=== PATIENT | male | born 1975 | race Caucasian/White ===

== ENCOUNTER 2019-10-05 14:33 | Emergency (ER) | payer OTHER, SELFPAY ==
[2019-10-05 14:37] VITALS: BP 124/82; PULSE 67; RESP 18; TEMP 36.2; O2SAT 99; BMI 28.5
[2019-10-05 15:12] LABS: Add Manual Diff / Slide Review NO; Basophils Absolute Auto 100 /uL (0-100); Basophils Percent Auto 1.2 % (0-2); Eosinophils Absolute Auto 100 /uL (0-450); Eosinophils Percent Auto 0.9 % (2-4); Hematocrit 42.8 % (41-53); Lymphocytes Absolute Auto 2000 /uL (1100-4500); Lymphocytes Percent Auto 27.9 % (25-40); Mean Corpuscular Hemoglobin 28.8 PG (26-34); Mean Corpuscular Volume 82.3 fL (80-100); Monocytes Absolute Auto 400 /uL (0-900); Monocytes Percent Auto 5.4 % (3-14); Neutrophils Absolute Auto 4600 /uL (1500-7000); Neutrophils Percent Auto 64.6 % (50-75); Platelet Count 235 X10^3/uL (150-400); Red Blood Cell Count 5.21 X10^6/uL (4.5-5.9); Red Cell Distribution Width 13.1 % (11.6-14.8); White Blood Cell Count 7.1 X10^3/uL (4.5-11.0)
[2019-10-05 15:15] LABS: Prothrombin Time 11.7 SECONDS (10.1-12.7)
[2019-10-05 15:17] LABS: PTT Partial Thromboplastin Tim 30 SECONDS (26.4-36.2)
[2019-10-05 15:19] LABS: Alanine Aminotransferase 26 IU/L (<50); Albumin 4.7 g/dL (3.5-5.0); Albumin Globulin Ratio 1.6 (1.0-2.8); Alkaline Phosphatase 74 U/L (38-126); Aspartate Aminotransferase 30 IU/L (17-59); BUN Creatinine Ratio 16.7 (6-22); Bilirubin Total 1.2 mg/dL (0.2-1.3); Blood Urea Nitrogen 15 mg/dL (9-20); Calcium 9.6 mg/dL (8.4-10.2); Carbon Dioxide 28 mmol/L (22-32); Chloride 103 mmol/L (98-107); Estimated Glomerular Filt Rate > 60.0 mL/min (>60); Globulin 2.9 g/dL (1.7-4.1); Glucose 88 mg/dL (70-100); HEMOLYSIS < 15 (0-50); Lipase 80 U/L (23-300); Potassium 3.7 mmol/L (3.4-5.1); Sodium 141 mmol/L (137-145); Total Protein 7.6 g/dL (6.3-8.2)
[2019-10-05 15:21] LABS: Bacteria Urine None Seen
[2019-10-05 15:23] LABS: Appearance Urine UA CLEAR; Bilirubin Urine UA NEGATIVE (NEGATIVE); Color Urine UA YELLOW; Glucose Urine UA NEGATIVE (Negative); Ketones Urine UA NEGATIVE (NEGATIVE); Leukocyte Esterase Urine UA NEGATIVE (NEGATIVE); Nitrite Urine UA NEGATIVE (Negative); Occult Blood Urine UA NEGATIVE (Negative); Protein Urine UA NEGATIVE (Negative); Specific Gravity Urine UA 1.025 (1.000-1.035); Urobilinogen Urine UA 0.2 E.U./dL (0.2); pH Urine UA 5.5 (4.5-8.0)
[2019-10-05 15:29] LABS: Culture Indicated Urine Cult Not Indicated; RBC Urine 0-1/HPF (0-5/HPF); Squamous Epithelial Cell Urine 0-1 /HPF (0-5/HPF); WBC Urine 0-1/HPF (0-5/HPF)
--- NOTE | 2019-10-05 15:40 | ED.ABDPAIN ---
HPI - Abdominal Pain General Chief Complaint: Abdominal Pain Stated Complaint: right lower abdominal pains Time Seen by Provider: 10/05/19 15:33 Source: patient Mode of arrival: Family Vehicle Limitations: no limitations History of Present Illness HPI narrative: This is a 44-year-old male who comes to the emergency department with complaint of right back and lower abdominal pain. Patient states it started last night he states initially he thought that he'd sat on his testicles wrong or injured himself as he initially had pain radiating down to the groin and right testicle area. That pretty much resolved and now the pain is just in the right flank and comes or little bit to the right lower quadrant. Patient states sort of a dull ache in the back. It's worse with movement, twisting bending or sitting down. He states that it is kind of always present. It's not as a maximum intensity right now. He has had back issues in the past but states this feels different. He has had down his left leg in the past and gets that when he stands for prolonged periods but is not having any increases or changes currently. Has not any fevers. Denies any nausea or vomiting. He did have an episode of diarrhea last night and had increased burping and flatulence. He has not had any frequency, urgency or dysuria. He denies any black or bloody stools. Related Data Previous Rx's Medication Instructions Recorded cyclobenzaprine 10 mg PO TID PRN #10 tab 10/05/19 meloxicam [Mobic] 7.5 mg PO BID PRN #10 tab 10/05/19 Allergies Allergy/AdvReac Type Severity Reaction Status Date / Time No Known Drug Allergies Allergy Verified 10/05/19 14:42 Review of Systems Review of Systems ROS Unobtainable: All systems reviewed & are unremarkable except as noted in HPI and below Patient History Social History Smoking Status: Never smoker Smoking Status: Never smoker alcohol intake frequency: a few times a month Substance Use Type: does not use Exam Narrative Exam Narrative: GENERAL: Alert and oriented x three, well-nourished, well-appearing male in mild distress. HEENT: Head normocephalic, atraumatic, EOMI, pupils reactive, face symmetric, moist mucous membranes NECK: Supple, full range of motion CARDIOVASCULAR: Regular rate and rhythm without murmurs, rubs or gallops. RESPIRATORY: Breath sounds equal bilaterally, no wheezes rales or rhonchi. ABDOMEN: Soft, nontender. Normoactive bowel sounds all 4 quadrants. No guarding or rebound, rigidity, no mass : ? Right CVA tenderness, patient states more from twisting the my actual palpation. BACK: No cervical, thoracic or lumbar vertebral point tenderness. Patient has normal range of motion. Patient's gait is normal. Rectal exam is deferred. Muscle strength is 5/5 in lower extremities EXTREMITIES: Normal range of motion, no clubbing or edema. Neurovascularly intact NEUROLOGICAL: Cranial nerves II through XII grossly intact. Moving all extremities SKIN: Warm, dry, no petechiae, no rashes or lesions. Initial Vital Signs Initial Vital Signs: Vital Signs Temperature 97.1 F L 10/05/19 14:37 Pulse Rate 67 10/05/19 14:37 Respiratory Rate 18 10/05/19 14:37 Blood Pressure 124/82 10/05/19 14:37 Pulse Oximetry 99 10/05/19 14:37 Course Orders Ordered: ED Orders 10/05/19 14:37 EKG-12 Lead Stat 10/05/19 14:57 Complete Blood Count AUTO DIFF Stat Comprehensive Metabolic Panel Stat Lipase Stat Partial Thromboplastin Time Stat Prothrombin Time INR Stat 10/05/19 15:15 Urinalysis and Microscopic Stat 10/05/19 16:05 CT kidney ureter bladder (KUB) Stat Discontinued Medications Cyclobenzaprine HCl (Flexeril) 10 mg PO NOW ONE Stop: 10/05/19 17:31 Last Admin: 10/05/19 17:41 Dose: 10 mg Documented by: KEN Ketorolac Tromethamine (Toradol) 30 mg IV NOW ONE Stop: 10/05/19 16:37 Last Admin: 10/05/19 16:44 Dose: 30 mg Documented by: KEN Vital Signs Vital signs: Vital Signs - 8 hr 10/05/19 14:37 10/05/19 16:52 Temperature 97.1 F L Pulse Rate 67 63 Respiratory Rate 18 18 Blood Pressure 124/82 Blood Pressure [Left Arm] 115/77 Pulse Oximetry 99 97 MDM - Abdominal Pain Lab Data Attestation: I reviewed the patient's lab results. Result diagrams: 10/05/19 14:57 10/05/19 14:57 Labs: Lab Results 10/05/19 10/05/19 10/05/19 Range/Units 14:57 14:57 14:57 WBC 7.1 (4.5-11.0) X10^3/uL RBC 5.21 (4.5-5.9) X10^6/uL Hgb 15.0 (13.5-17.5) g/dL Hct 42.8 (41-53) % MCV 82.3 (80-100) fL MCH 28.8 (26-34) PG MCHC 35.0 (30-36) % RDW 13.1 (11.6-14.8) % Plt Count 235 (150-400) X10^3/uL Neut % (Auto) 64.6 (50-75) % Lymph % (Auto) 27.9 (25-40) % [place] % (Auto) 5.4 (3-14) % Eos % (Auto) 0.9 L (2-4) % Baso % (Auto) 1.2 (0-2) % Neut # (Auto) 4600 (3733-0811) /uL Lymph # (Auto) 2000 (3258-5814) /uL [place] # (Auto) 400 (0-900) /uL Eos # (Auto) 100 (0-450) /uL Baso # (Auto) 100 (0-100) /uL PT 11.7 (10.1-12.7) SECONDS INR 1.0 (0.9-1.3) APTT 30 (26.4-36.2) SECONDS Sodium 141 (137-145) mmol/L Potassium 3.7 (3.4-5.1) mmol/L Chloride 103 (98-107) mmol/L Carbon Dioxide 28 (22-32) mmol/L BUN 15 (9-20) mg/dL Creatinine 0.90 (0.66-1.25) mg/dL Estimated GFR > 60.0 (>60) mL/min BUN/Creatinine Ratio 16.7 (6-22) Glucose 88 (70-100) mg/dL Calcium 9.6 (8.4-10.2) mg/dL Total Bilirubin 1.2 (0.2-1.3) mg/dL AST 30 (17-59) IU/L ALT 26 (<50) IU/L Alkaline Phosphatase 74 (38-126) U/L Total Protein 7.6 (6.3-8.2) g/dL Albumin 4.7 (3.5-5.0) g/dL Globulin 2.9 (1.7-4.1) g/dL Albumin/Globulin Ratio 1.6 (1.0-2.8) Lipase 80 (23-300) U/L Urine Color Urine Appearance Urine pH (4.5-8.0) Ur Specific [place] (1.000-1.035) Urine Protein (Negative) Urine Glucose (UA) (Negative) g/dL Urine Ketones (NEGATIVE) Urine Occult Blood (Negative) Urine Nitrate (Negative) Urine Bilirubin (NEGATIVE) Urine Urobilinogen (0.2) E.U./dL Ur Leukocyte Esterase (NEGATIVE) Urine RBC (0-5/HPF) Urine WBC (0-5/HPF) Ur Squamous Epith Cells (0-5/HPF) Urine Bacteria (None) Ur Culture Indicated? 10/05/19 Range/Units 15:15 WBC (4.5-11.0) X10^3/uL RBC (4.5-5.9) X10^6/uL Hgb (13.5-17.5) g/dL Hct (41-53) % MCV (80-100) fL MCH (26-34) PG MCHC (30-36) % RDW (11.6-14.8) % Plt Count (150-400) X10^3/uL Neut % (Auto) (50-75) % Lymph % (Auto) (25-40) % [place] % (Auto) (3-14) % Eos % (Auto) (2-4) % Baso % (Auto) (0-2) % Neut # (Auto) (5071-8471) /uL Lymph # (Auto) (4125-1118) /uL [place] # (Auto) (0-900) /uL Eos # (Auto) (0-450) /uL Baso # (Auto) (0-100) /uL PT (10.1-12.7) SECONDS INR (0.9-1.3) APTT (26.4-36.2) SECONDS Sodium (137-145) mmol/L Potassium (3.4-5.1) mmol/L Chloride (98-107) mmol/L Carbon Dioxide (22-32) mmol/L BUN (9-20) mg/dL Creatinine (0.66-1.25) mg/dL Estimated GFR (>60) mL/min BUN/Creatinine Ratio (6-22) Glucose (70-100) mg/dL Calcium (8.4-10.2) mg/dL Total Bilirubin (0.2-1.3) mg/dL AST (17-59) IU/L ALT (<50) IU/L Alkaline Phosphatase (38-126) U/L Total Protein (6.3-8.2) g/dL Albumin (3.5-5.0) g/dL Globulin (1.7-4.1) g/dL Albumin/Globulin Ratio (1.0-2.8) Lipase (23-300) U/L Urine Color Yellow Urine Appearance Clear Urine pH 5.5 (4.5-8.0) Ur Specific [place] 1.025 (1.000-1.035) Urine Protein Negative (Negative) Urine Glucose (UA) Negative (Negative) g/dL Urine Ketones Negative (NEGATIVE) Urine Occult Blood Negative (Negative) Urine Nitrate Negative (Negative) Urine Bilirubin Negative (NEGATIVE) Urine Urobilinogen 0.2 (0.2) E.U./dL Ur Leukocyte Esterase Negative (NEGATIVE) Urine RBC 0-1/hpf (0-5/HPF) Urine WBC 0-1/hpf (0-5/HPF) Ur Squamous Epith Cells 0-1 /hpf (0-5/HPF) Urine Bacteria None seen (None) Ur Culture Indicated? Cult not indicated Imaging Data CT scan - abdomen: Radiologist's impression: [place] [id number] CT Scan Report Signed Patient: Sawyer Thompson [facility]#: [id number] : 1975Acct:[id number] Age/Sex: 44 / MDate of Service: 10/05/19 Loc: ED Accession Number: [id number] Procedure: CT kidney ureter bladder (KUB) Ordering Provider: Sarah Baez D.O. PROCEDURE: CT KIDNEY URETER BLADDER (KUB) INDICATIONS: right flank/back pain radiates to RLQ, last night groin TECHNIQUE: Noncontrast 5 mm thick sections acquired from the diaphragms to the symphysis. 5 mm thick coronal and sagittal reformats were then performed. For radiation dose reduction, the following was used: automated exposure control, adjustment of mA and/or kV according to patient size. COMPARISON: None. FINDINGS: Image quality: Excellent. Lung bases: Lung bases are clear. Heart size is normal. Urinary system: Both kidneys are normal in size. No kidney stones. No hydronephrosis or perinephric fat stranding. Both ureters appear non-dilated throughout their expected courses. Bladder wall thickness is normal; no calcified bladder stones. Other solid organs: Liver is normal in size. Gallbladder is unremarkable. Pancreas is normal in contours. Spleen is normal in size. No adrenal nodules. Peritoneum and bowel: Unenhanced bowel loops demonstrate normal wall thickness and caliber. The appendix is not definitely identified. No free fluid or air. Nodes and vessels: No retroperitoneal or mesenteric adenopathy by size criteria. Aorta and inferior vena cava are normal in caliber. Retroaortic left renal vein, variant. Abdominal wall: No ventral hernias. Pelvis: No free pelvic fluid. No inguinal hernias or adenopathy. Mild prostatomegaly. Trace hydroceles. Bones: No suspicious bony lesions. No vertebral body compression fractures. IMPRESSION: Negative exam. No kidney stones. No acute inflammatory change identified. Dictated by: Sandeep Jiménez M.D. on 10/05/2019 at 16:37 Approved by: Sandeep Jiménez M.D. on 10/05/2019 at 16:42 ECG Data Attestation: I personally reviewed and interpreted this ECG as follows: Prior ECG tracings: not available for review Interpretation: Sinus rhythm rate of 62 P are 173 QRS of 93 QTC of 400. No ST changes appreciated MDM Narrative Medical decision making narrative: Patient's CBC, coags and CMP are negative. Urine is negative for hematuria, no nitrates no leuks or signs of infection. Patient had some symptoms consistent with back issues but others that seem more consistent with possible kidney stone although he did not have hematuria his urinalysis. Patient's obtained does not show any acute changes. He is nontender in his right lower quadrant and more with maybe some slight flank pain. Discussed with patient findings today and that this may be secondary to back issues but that there's always potential for another cause although nothing was clearly found on his labs or imaging. He has had chronic back pain in the past and this may be an exacerbation, patient does not have any red flag symptoms at this time. He has had numbness down his left lower extremity but not regularly. Patient is feeling more comfortable after Toradol. Discussed with patient signs and symptoms to watch for reasons to return emergently. Discharge Plan Departure Patient Disposition: Home Clinical Impression: Flank pain Discharge Date/Time: 10/05/19 17:52 Instructions: DI for Flank Pain Activity Restrictions/Additional Instructions: Follow-up with your primary care physician on Tuesday. Your labs and CT imaging today do not show any acute changes. I suspect your pain may be secondary to back pain although there's always potential for other causes. Take medication as prescribed, may take Mobic 1 tablet every 12 hours as needed. You may take Tylenol with this medication, you may take Tylenol up to a 1000 mg every 8 hours as needed. Take muscle relaxer every 8 hours as needed, this medication can make you sleepy do not drive, perform hazardous activities or make any major decisions while taking it. Return to the ER for fevers greater 100.4 F, new or worsening back pain, persistent vomiting, loss of bowel or bladder control, new weakness, numbness or loss of sensation in the groin, lower extremities or other new or concerning symptoms. Prescriptions: New meloxicam [Mobic] 7.5 mg tablet 7.5 mg PO BID PRN (Reason: pain) Qty: 10 RF: 0 cyclobenzaprine 10 mg tablet 10 mg PO TID PRN (Reason: muscle spasm) Qty: 10 RF: 0
--- NOTE | 2019-10-05 16:05 | DI.CT.S_ITS ---
PROCEDURE: CT KIDNEY URETER BLADDER (KUB) INDICATIONS: right flank/back pain radiates to RLQ, last night groin TECHNIQUE: Noncontrast 5 mm thick sections acquired from the diaphragms to the symphysis. 5 mm thick coronal and sagittal reformats were then performed. For radiation dose reduction, the following was used: automated exposure control, adjustment of mA and/or kV according to patient size. COMPARISON: None. FINDINGS: Image quality: Excellent. Lung bases: Lung bases are clear. Heart size is normal. Urinary system: Both kidneys are normal in size. No kidney stones. No hydronephrosis or perinephric fat stranding. Both ureters appear non-dilated throughout their expected courses. Bladder wall thickness is normal; no calcified bladder stones. Other solid organs: Liver is normal in size. Gallbladder is unremarkable. Pancreas is normal in contours. Spleen is normal in size. No adrenal nodules. Peritoneum and bowel: Unenhanced bowel loops demonstrate normal wall thickness and caliber. The appendix is not definitely identified. No free fluid or air. Nodes and vessels: No retroperitoneal or mesenteric adenopathy by size criteria. Aorta and inferior vena cava are normal in caliber. Retroaortic left renal vein, variant. Abdominal wall: No ventral hernias. Pelvis: No free pelvic fluid. No inguinal hernias or adenopathy. Mild prostatomegaly. Trace hydroceles. Bones: No suspicious bony lesions. No vertebral body compression fractures. IMPRESSION: Negative exam. No kidney stones. No acute inflammatory change identified. Dictated by: Sandeep Jiménez M.D. on 10/05/2019 at 16:37 Approved by: Sandeep Jiménez M.D. on 10/05/2019 at 16:42
[2019-10-05] MEDS: KETOROLAC 60 MG/2 ML VIAL 30 MG IV (16:44)
[2019-10-05 16:52] VITALS: BP 115/77; PULSE 63; RESP 18; O2SAT 97
[2019-10-05] MEDS: CYCLOBENZAPRINE 10 MG TABLET PO (17:41)
== END 2019-10-05 17:52 | disposition home or self-care (01) ==
PROVIDERS: Emergency Provider Emergency Medicine
DX: R10.30 Lower abdominal pain, unspecified (principal)
CPT/HCPCS: 36415; 74176; 80053; 81001; 83690; 85025; 85610; 85730; 93005; 96374; 99284; 99285; J1885

== ENCOUNTER 2019-10-07 19:54 | Emergency (ER) | payer OTHER, SELFPAY ==
[2019-10-07 20:11] VITALS: BP 142/77; PULSE 75; RESP 16; TEMP 36.9; O2SAT 94
--- NOTE | 2019-10-07 20:27 | ED_ITS ---
HPI - Back Pain/Injury General Chief Complaint: Back Pain/Injury Stated Complaint: groin and leg pain right side Time Seen by Provider: 10/07/19 19:56 Source: patient and family Mode of arrival: Ambulatory Limitations: no limitations History of Present Illness HPI Narrative: 44-year-old male here for evaluation of right-sided flank pain/low back pain now states that he has having some pain radiating down his right leg. He was seen here in the emergency department a couple days ago where he had a workup for potential kidney stone. According to the note to the provider at that time there was some suspicion that this could be lower back pain causing his symptoms however he was not having any of the pain radiating down his right leg. Since he was here he has developed a symptom. No fevers. No urinary symptoms. No bowel changes. Related Data Previous Rx's Medication Instructions Recorded cyclobenzaprine 10 mg PO TID PRN #10 tab 10/05/19 meloxicam [Mobic] 7.5 mg PO BID PRN #10 tab 10/05/19 hydrocodone-acetaminophen [[place]] 1 tab PO Q4-6H PRN #10 tab 10/07/19 lidocaine 1 patch TOP Q24H PRN #1 each 10/07/19 prednisone 40 mg PO DAILY 6 Days #12 tab 10/07/19 Allergies Allergy/AdvReac Type Severity Reaction Status Date / Time No Known Drug Allergies Allergy Verified 10/05/19 14:42 Review of Systems Constitutional Constitutional: Denies fever(s) Cardiovascular Cardiovascular: Denies chest pain and Denies dyspnea Respiratory Respiratory: Denies dyspnea Gastrointestinal Gastrointestinal: Denies abdominal pain, Denies nausea and Denies vomiting Genitourinary Genitourinary: Denies dysuria, Reports flank pain, Denies testicular mass, Denies urinary frequency, Denies urinary hesitancy and Denies urinary incontinence Musculoskeletal Musculoskeletal: Denies myalgias and Denies arthralgias Integumentary/Breasts Skin/Breast: Denies lesions and Denies rash Neurologic Neurologic: Denies behavioral changes Psychiatric Psychiatric: Denies behavioral changes Hematologic/Lymphatic Hematologic/Lymphatic: Denies easy bleeding and Denies easy bruising Patient History Medical History Healthy adult (Acute) Social History (Reviewed 10/08/19 @ 02:24 by GRADY Robertson Smoking Status: Never smoker Smoking Status: Never smoker alcohol intake frequency: a few times a month Substance Use Type: does not use Exam Initial Vital Signs Initial Vital Signs: Vital Signs Temperature 98.5 F 10/07/19 20:11 Pulse Rate 75 10/07/19 20:11 Respiratory Rate 16 10/07/19 20:11 Blood Pressure 142/77 H 10/07/19 20:11 Pulse Oximetry 94 10/07/19 20:11 Const General: cooperative and comfortable Orientation: alert, awake and oriented x3 HENMT Head: normal to inspection and normocephalic Resp Effort & Inspection: normal respiratory effort Cardio Rate: regular rate Back/Spine/Pelvis Back: normal to inspection and No back tenderness Sacroiliac Joints: nontender Skin Lesions: no lesions Rashes: no rashes Neuro General: alert and awake Cognition: normal cognition Speech: speech normal Extrem General: normal to inspection, capillary refill normal and No edema Psych Appearance: grossly normal and well kempt Course Orders Ordered: Discontinued Medications Hydrocodone Bitart/Acetaminophen (Vicodin 5/325 Prepack) 1 bottle MISC SEEINSTR ONE Stop: 10/07/19 20:28 Last Admin: 10/07/19 20:43 Dose: 1 bottle Documented by: KEN Ketorolac Tromethamine (Toradol) 30 mg IM NOW ONE Stop: 10/07/19 20:28 Last Admin: 10/07/19 20:43 Dose: 30 mg Documented by: KEN Prednisone (Deltasone) 40 mg PO NOW ONE Stop: 10/07/19 20:28 Last Admin: 10/07/19 20:43 Dose: 40 mg Documented by: KEN Vital Signs Vital signs: Vital Signs - 8 hr 10/07/19 20:11 10/07/19 21:18 Temperature 98.5 F Pulse Rate 75 86 Respiratory Rate 16 16 Blood Pressure 142/77 H 138/77 Pulse Oximetry 94 98 MDM - Back Pain/Injury MDM Narrative Medical decision making narrative: I do suspect musculoskeletal back pain given the patient's history and physical. Low suspicion for cauda equina given his exam. He does not have tenderness to palpation of his lower back no trauma. Will hold on any radiologic studies. We did discuss the use of anti-i nflammatories. Will also treat his symptoms otherwise. He was given return precautions and follow-up instructions. He expressed understanding and agreement with plan. Discharge Plan Departure Patient Disposition: Home Clinical Impression: Acute back pain with sciatica Qualifiers: Laterality: right Qualified Code(s): M54.41 - Lumbago with sciatica, right side Discharge Date/Time: 10/07/19 21:20 Instructions: DI for Back Pain With Sciatica, Activity May Be Better then Rest for Low Back Pain Recovery, Exercise May Reduce Risk of Low Back Pain Activity Restrictions/Additional Instructions: Continue to take the Mobic. Take your other medications as directed. I do recommend you contact your primary provider for follow-up to discuss the indications for an MRI. Return to the emergency department for any new symptoms Prescriptions: New prednisone 20 mg tablet 40 mg PO DAILY 6 Days Qty: 12 RF: 0 lidocaine 4 % adhesive patch,medicated 1 patch TOP Q24H PRN (Reason: pain) Qty: 1 RF: 0 hydrocodone-acetaminophen [[place]] 5-325 mg tablet 1 tab PO Q4-6H PRN (Reason: pain) Qty: 10 RF: 0 No Action meloxicam [Mobic] 7.5 mg tablet 7.5 mg PO BID PRN (Reason: pain) Qty: 10 RF: 0 cyclobenzaprine 10 mg tablet 10 mg PO TID PRN (Reason: muscle spasm) Qty: 10 RF: 0
[2019-10-07] MEDS: HYDROCODONE/ACET 5/325 PREPACK 1 BOTTLE MISC (20:43)
[2019-10-07] MEDS: KETOROLAC 60 MG/2 ML VIAL 30 MG IM (20:43)
[2019-10-07] MEDS: predniSONE 20 MG TABLET 40 MG PO (20:43)
[2019-10-07 21:18] VITALS: BP 138/77; PULSE 86; RESP 16; O2SAT 98
== END 2019-10-07 21:20 | disposition home or self-care (01) ==
PROVIDERS: Emergency Provider Emergency Medicine
DX: M54.41 Lumbago with sciatica, right side (principal)
CPT/HCPCS: 96372; 99281; 99283; J1885

== ENCOUNTER → 2022-11-08 09:47 | Outpatient (CLI) | payer OTHER, SELFPAY ==
[2022-11-08 11:14] LABS: COVID19 -Nasal RAPID Negative (Negative)
== END ==
PROVIDERS: Visit Provider Surgery
DX: Z20.822 Contact with and (suspected) exposure to COVID-19 (principal); Z01.812 Encounter for preprocedural laboratory examination
CPT/HCPCS: 87635; C9803

== ENCOUNTER 2022-11-09 13:11 | Day surgery (SDC) | payer OTHER, SELFPAY ==
[2022-11-09 13:29] VITALS: BMI 29.2
[2022-11-09 13:33] VITALS: BP 125/72; PULSE 82; RESP 16; TEMP 36.4; O2SAT 96
[2022-11-09] MEDS: LACTATED RINGERS 1,000 ML 42 ML IV (13:34)
--- NOTE | 2022-11-09 13:55 | PM.HP.1 ---
History of Present Illness History of Present Illness Date Patient Seen: 11/09/22 Chief complaint: Colonoscopy Narrative: The patient presents for colorectal screening. They have never had any previous examination for such. No personal or family history of colon cancer. On further history denies any recent gastrointestinal symptoms. No nausea, vomiting, abdominal pain, loss of appetite, unexplained weight loss, change in bowel habits, or blood per rectum. Patient History Medical History (Updated 10/22/19 @ 00:00 by ) Healthy adult Family & Social History Social History: household members spouse Tobacco & Substance use: Smoking Status Never smoker alcohol intake current alcohol intake frequency a few times a month Substance Use Type does not use Meds Home Medications and Allergies Home Medications Medication Instructions Recorded Confirmed Type lidocaine 4 % topical patch 1 patch topical Q24H PRN pain #1 ea 10/07/19 11/09/22 Rx acetaminophen 500 mg tablet 1,000 mg PO Q6H PRN Headache 11/09/22 11/09/22 History Allergies Allergy/AdvReac Type Severity Reaction Status Date / Time No Known Drug Allergies Allergy Verified 11/09/22 13:26 Exam Vital Signs (past 8 hours): - 11/09/22 13:33 Temperature 97.5 F L Pulse Rate 82 Respiratory Rate 16 Blood Pressure 125/72 Pulse Oximetry 96 Oxygen Delivery Method Room Air Oxygen Delivery Method Room Air Narrative Exam Narrative: General adult man alert oriented no acute distress Assessment & Plan Assessment & Plan narrative: The patient requires colorectal screening and colonoscopy is recommended. Technical details were discussed. Risks, benefits, alternatives explained. Risks including but not limited to myocardial infarction, aspiration, bleeding, pain, missed lesion, incomplete examination, need for further radiographic studies, colonic perforation, and need for major abdominal surgery were discussed. All questions were answered to their satisfaction, and they are in agreement with this plan. Time Spent With Patient Critical Care time: I spent a total of [] minutes of critical care time on this patient's care today; this time is exclusive of procedural time.
[2022-11-09 15:33] VITALS: BP 126/84; PULSE 84; RESP 20; TEMP 36.2; O2SAT 98
--- NOTE | 2022-11-09 15:36 | PM.OP.COLON ---
Operative Date/Time/Diagnoses Date of procedure: 11/09/22 Time of procedure: 15:36 Pre-op diagnosis: Colorectal screening Post-op diagnosis: same Procedure & Clinicians Study performed: Colonoscopy Same procedure as scheduled: Yes Indications: Colorectal screening Surgeon: Jorge Alberto Stuart Procedure Notes Procedure in detail: The history and physical was performed/updated and the patient is ASA class is 1. The procedure was discussed in detail with the patient. Potential risks complications including infection, bleeding, missed diagnosis, perforation, need for surgery, and were explained. Their questions were answered and informed consent was obtained. Patient was brought to the procedure room and placed standard monitoring equipment. The patient's vital signs were monitored continuously throughout the entire procedure. Prior to starting time-out was performed. The patient was placed in the left lateral recumbent position. Procedural sedation was administered by anesthesia. Examination began with a thorough inspection of the perianal area there was no evidence of fissures, fistulae, external hemorrhoids or cutaneous malignancy. The colonoscopy scope was then placed into the anal canal and was advanced to the cecum, which was identified by the ileocecal valve, the appendiceal orifice and the confluence of the taenia. The scope was then slowly withdrawn examining colon thoroughly in all directions, irrigating it of any residual stool. FINDINGS 1. No masses polyps or inflammation 2. Normal healthy colon The patient tolerated the procedure well. They will be discharged once criteria are met. The prep was of good/excellent quality. The withdrawl time was 6 minutes. Specimen(s): none sent Impression: Normal colonoscopy Post-procedure Recommendations: Colonoscopy in 10 years and High fiber diet Disposition: same day surgery
[2022-11-09 15:38] VITALS: BP 120/84; PULSE 78; RESP 17; TEMP 36.4; O2SAT 99
[2022-11-09 15:50] VITALS: BP 114/79; PULSE 74; RESP 16; TEMP 36.3; O2SAT 97
== END 2022-11-09 15:56 | disposition home or self-care (01) ==
PROVIDERS: Referring Provider Surgery; Visit Provider Surgery
PROC: 0DJD8ZZ Inspection of Lower Intestinal Tract, Via Natural or Artificial Opening Endoscopic (ICD-10-PCS; CPT 45378; principal; 2022-11-09 14:15)
DX: Z12.11 Encounter for screening for malignant neoplasm of colon (principal)
CPT/HCPCS: 45378; J2704

== ENCOUNTER → 2023-08-24 16:36 | Outpatient (CLI) | payer OTHER, SELFPAY | PROVIDERS: Referring Provider Chiropractor; Visit Provider Chiropractor | DX: J92.9 Pleural plaque without asbestos (principal) | CPT/HCPCS: 94060 ==

== ENCOUNTER 2025-07-06 08:45 | Emergency (ER) | payer OTHER, SELFPAY ==
[2025-07-06 08:52] VITALS: BP 144/64; PULSE 72; RESP 14; TEMP 36.2; O2SAT 100; BMI 23.7
[2025-07-06 08:57] VITALS: PULSE 70
--- NOTE | 2025-07-06 09:00 | ED.LOWEXIN ---
HPI - Extremity Injury (Lower) General Chief Complaint: Extremity Injury, Lower Stated Complaint: rt knee can't support weight Time Seen by Provider: 07/06/25 08:53 Source: patient Mode of arrival: Ambulatory History of Present Illness HPI Narrative: Patient is a healthy 49-year-old male no significant history presenting to day with right knee pain. He has had some ongoing right knee pain for the last couple of months he may have injured it earlier this summer. Today his pain is so bad he is unable to bear weight. He denies any recent injury no popping. No fever he knows he needs an MRI he is working with [facility] to get this. He has had previous meniscus tear in the same knee. Related Data Home Medications ?Medication ?Instructions ?Recorded ?Confirmed cyclobenzaprine 10 mg tablet 10 mg PO ONCE PM 07/06/25 07/06/25 escitalopram oxalate 10 mg tablet 10 mg PO DAILY 07/06/25 07/06/25 Allergies Allergy/AdvReac Type Severity Reaction Status Date / Time No Known Drug Allergies Allergy Verified 07/06/25 08:52 Patient History Medical History (Updated 07/06/25 @ 09:45 by Minda Lira DO) Healthy adult Social History household members: spouse Smoking Status: Never smoker alcohol intake: current Smoking Status: Never smoker alcohol intake frequency: a few times a month Alcohol type: beer Exam Initial Vital Signs Initial Vital Signs: Vital Signs Temperature 97.2 F L 07/06/25 08:52 Pulse Rate 72 07/06/25 08:52 Respiratory Rate 14 07/06/25 08:52 Blood Pressure 144/64 H 07/06/25 08:52 Pulse Oximetry 100 07/06/25 08:52 Oxygen Delivery Method Room Air 07/06/25 08:52 GENERAL: Well-appearing, well-nourished and in no acute distress. CARDIOVASCULAR: peripheral pulses in tact, cap refill <2 sec RESPIRATORY: No respiratory distress, speaks in full sentences without difficulty EXTREMITIES: Normal range of motion, no clubbing or edema. Neurovascularly intact Right knee tender laterally some mild swelling no erythema anterior-posterior drawer negative distal pedal pulse intact NEUROLOGICAL: Cranial nerves II through XII grossly intact. Normal gait and speech. SKIN: Warm, dry, no petechiae, no rashes or lesions. Course Orders Ordered: ED Orders 07/06/25 09:07 XR knee RT 3V Stat Vital Signs Vital signs: Vital Signs - 8 hr 07/06/25 08:52 07/06/25 08:57 Temperature 97.2 F L Pulse Rate 72 Pulse Rate [Right Dorsalis Pedis] 70 Respiratory Rate 14 Blood Pressure 144/64 H Pulse Oximetry 100 Oxygen Delivery Method Room Air MDM - Extremity Injury (Lower) Imaging Data Extremity x-ray #1: Radiologist's Impression: PROCEDURE: XR KNEE RT 3V INDICATIONS: pain TECHNIQUE: 3 views of the knee were acquired. COMPARISON: None. FINDINGS: Bones: No fractures or dislocations. No suspicious bony lesions. Moderate medial compartment joint space narrowing small marginal osteophyte Soft tissues: No joint effusion. No suspicious soft tissue calcifications. IMPRESSION: Degenerative arthritic changes without fracture Approved by: Narinder Odonnell M.D. on 07/06/2025 at 8:35 MDM Narrative Medical decision making narrative: Patient healthy 49-year-old male with ongoing right knee issues presenting today with increasing right knee pain. X-ray does not show any acute fracture. He is working on an MRI as an outpatient. At this time abortive care only pain control as needed. Given knee immobilizer and crutches today. Is okay with Tylenol Motrin as needed for pain Discharge Plan Departure Patient Disposition: Home Clinical Impression: Right knee sprain Instructions: DI for Knee Sprain Activity Restrictions/Additional Instructions: *You have been diagnosed with right knee sprain *What to do: At this time wear knee brace while active use crutches or walking device as needed elevate and ice *Continue to take medications as directed Tylenol Motrin as needed for pain *Follow up with your primary care provider in 2-3 days or call [phone] *Return to ER if you should have increasing pain weakness instability or any new, worsening or concerning symptoms Prescriptions: No Action cyclobenzaprine 10 mg tablet 10 mg PO ONCE PM escitalopram oxalate 10 mg tablet 10 mg PO DAILY Referrals: ProviderKen [Primary Care Provider, Family Practice] Shaheen Pineda DO [Non-Staff, Internal Medicine] Stand Alone Forms: Patient Portal/API
--- NOTE | 2025-07-06 09:07 | DI.RAD.S_ITS ---
PROCEDURE: XR KNEE RT 3V INDICATIONS: pain TECHNIQUE: 3 views of the knee were acquired. COMPARISON: None. FINDINGS: Bones: No fractures or dislocations. No suspicious bony lesions. Moderate medial compartment joint space narrowing small marginal osteophyte Soft tissues: No joint effusion. No suspicious soft tissue calcifications. IMPRESSION: Degenerative arthritic changes without fracture Approved by: Narinder Odonnell M.D. on 07/06/2025 at 8:35
== END 2025-07-06 10:00 | disposition home or self-care (01) ==
PROVIDERS: Emergency Provider Emergency Medicine
DX: S83.91XA Sprain of unspecified site of right knee, initial encounter (principal)
CPT/HCPCS: 73562; 99283